=== PATIENT | female | born 1985 | race Caucasian/White ===

== ENCOUNTER 2018-01-09 05:51 | Inpatient (IN) ==
--- OUTSIDE RECORDS SUMMARY | 2018-01-09 06:08 | External Medical Summary ---
:1985 Author Organization eClinicalWorks Care Team Providers Name Role Phone Chiquita Shoemaker Provider Role Unavailable Allergies No Known Allergies Problems Problem Type Condition Code Onset Dates Condition Status Problem Graves disease E05.00 Active Problem Multiple thyroid nodules E04.2 Active Medications Medication Code System Code Instructions Start Date End Date Status Dosage Synthroid [facility] [address] MCG Orally 1 tablet on -19 Once a day an empty stomach in the morning Results No Known Results Summary Purpose eClinicalWorks Submission
--- OUTSIDE RECORDS SUMMARY | 2018-01-09 06:08 | External Medical Summary ---
:1985 Author Organization e[employer]Works Care Team Providers Name Role Phone Manohar Alicea Provider Role Unavailable Allergies, Adverse Reactions, Alerts Substance Reaction Event Type N.K.D.A. 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 Medications Medication Code Code Instructions Start End Status Dosage System Date Date Ketoconazole [facility] [address]-56 2 % Externally December 26, as one daily for 2 2015 directed weeks Lisinopril-Hydr [facility] [address]-91 10-12.5 MG 1 tablet ochlorothiazide Orally Once a day Methimazole [facility] 60401810727 5MG Orally Once 1/2 tablet a day daily Procedures Procedure Coding System Code Date Office Visit, Est Pt., Level 4 CPT-4 09059 December 26, 2014 Vital Signs Date/Time: December 26, 2014 Blood Pressure Systolic 120 mm Hg Weight 142 lbs Height 67.5 in BMI 21.91 Index Respiratory Rate 16 /min Cardiac Monitoring Heart Rate 80 /min Blood Pressure Diastolic 72 mm Hg Results No Known Results Summary Purpose eClinicalWorks Submission
--- OUTSIDE RECORDS SUMMARY | 2018-01-09 06:08 | External Medical Summary ---
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
--- OUTSIDE RECORDS SUMMARY | 2018-01-09 06:08 | External Medical Summary ---
:1985 Author Organization eClinicalWorks Care Team Providers Name Role Phone Manohar Alicea Provider Role Unavailable Allergies, Adverse Reactions, Alerts Substance Reaction Event Type N.K.D.A. Info Not Available Non Drug Allergy Problems Problem Type Condition ICD-9 Code Onset Dates Condition Status Problem Thyroid nodule 241.0 Active Problem Graves disease 242.00 Active Problem Graves disease E05.00 Active Assessment Graves disease 242.00 Active Assessment Thyroid nodule 241.0 Active Medications Medication Code System Code Instructions Start Date End Date Status Dosage Methimazole [facility] [address]475 5MG Orally Once a 1/2 tablet 5-01 day Procedures Procedure Coding System Code Date FREE ASSAY (FT-3) CPT-4 15346 Apr 24, 2015 ASSAY THYROID STIM HORMONE CPT-4 82024 Apr 24, 2015 Venipuncture CPT-4 42857 Apr 24, 2015 Office Visit, Est Pt., Level 3 CPT-4 11352 Apr 24, 2015 ASSAY OF FREE THYROXINE CPT-4 76721 Apr 24, 2015 Vital Signs Date/Time: Apr 24, 2015 Blood Pressure Systolic 126 mm Hg Weight 144.0 lbs Height 67.5 in BMI 22.22 Index Respiratory Rate 16 /min Cardiac Monitoring Heart Rate 64 /min Blood Pressure Diastolic 74 mm Hg Results Name Result Date Reference Range Unit Abnormality Flag Free T3 98770 Summary Purpose eClinicalWorks Submission
[2018-01-09] MEDS ORDERED: MORPHINE SULFATE 2mg INJ IVP PRN (06:14)
[2018-01-09] MEDS ORDERED: ACETAMINOPHEN 325 MG TABLET PO PRN (06:14)
[2018-01-09 06:31] VITALS: O2SAT 96
[2018-01-09] MEDS: D5LR 1,000 ML IV SCH ×2 (06:52→14:27)
[2018-01-09] MEDS ORDERED: METOCLOPRAMIDE 10mg/2ml INJECTION IVP PRN (15:07)
[2018-01-09] MEDS: LR 1,000 ML IV SCH (19:38)
--- NOTE | 2018-01-09 20:21 | Anesthesia Preoperative Report ---
Anesthesia Epidural/Spinal Rec - Date and Time Date: 01/09/18 Preoperative Diagnosis: Induction Procedure: Labor Epidural Plan: Epidural - Vital Signs Vital Signs: Temperature 98.4 F 01/09/18 07:04 Pulse Rate 99 01/09/18 07:04 Respiratory Rate 14 01/09/18 07:04 Blood Pressure 143/90 H 01/09/18 07:04 Pulse Oximetry 96 01/09/18 07:04 /Para: P:2 - Medictaions & Allergies Inpatient Medications: Current Medications Acetaminophen (Tylenol) 650 mg PO Q4H PRN PRN Reason: Fever Dextrose/Lactated Ringer's (Dextrose 5%-Lactated Ringers) 1,000 mls @ 125 mls/ hr IV .Q8H [facility] Last Admin: 01/09/18 14:27 Dose: 125 mls/hr Metoclopramide HCl (Reglan) 10 mg IVP Q6H PRN Misoprostol (Cytotec) 400 mcg VG Q3HR [facility] Last Admin: 01/09/18 16:24 Dose: 400 mcg Morphine Sulfate (Morphine Sulf 2 Mg Inj) 2 - 4 mg IVP Q2H PRN PRN Reason: Severe Labor Pain Allergies/Adverse Reactions: Allergies Allergy/AdvReac Type Severity Reaction Status Date / Time No Known Drug Allergies Allergy Unknown Verified 01/09/18 08:13 - Home Medications Home Medications: Home Medications Medication Instructions Recorded Confirmed Type Ibuprofen 800 mg PO Q8H PRN #60 tab 03/31/14 01/09/18 Rx Levothyroxine Sodium [Synthroid] 1 tab PO ACB #0 tab 11/21/16 01/09/18 History methyldopa 1 tab PO BID 09/27/17 01/09/18 History - Medical History Cardiovascular: Reports: Hypertension Renal/Endocrine: Reports: Thyroid Disease, Other (Graves disease) Other History: Reports: Cancer (Thyroid) - Surgical History Reproductive Surgery/Treatment: Reports: Section Anesthesia Reactions: None Hx Family Anesthesia Reaction: No History of Motion Sickness: No - Social History Smoking Status: Never smoker Second Hand Exposure: No Substance Use Type: does not use Alcohol Intake Frequency: does not drink Hx Chewing Tobacco Use: No - Pertinent Findings Lab Data: CBC and BMP 01/09/18 06:45 01/09/18 06:45 BMP 01/09/18 06:45 Sodium 143 Potassium 3.7 Chloride 108 H Carbon Dioxide 20 L BUN 8.0 Creatinine 0.4 L Glucose 99 Calcium 8.7 Liver Function 01/09/18 Range/Units 06:45 Total Bilirubin 0.40 (0.20-1.30) MG/DL AST 19 (14-36) U/L ALT 16 (1-35) U/L Alkaline Phosphatase 75 (38-126) U/L Albumin 4.2 (3.5-5.0) g/dL EKG Rhythm: Normal Sinus Rhythm - Physical Exam Respiratory Exam: lungs clear Cardiovascular Exam: regular rate and rhythm - Airway Assessment Mallampati Score: II TMD: 3 Fingerbreadths Neck Extension: good Overall Assessment: no airway concerns - ASA ASA Score: 2 - Discussion Discussion: Discussed risks/options/alternatives of anesthesia and questions answered. Patient consents. Nursing pain assessment noted. Anesthesia Discussion: spouse Attestation Statement: Prior to the delivery of any anesthetic medication, I examined the patient, developed the plan, obtained the patient's consent and discussed the risk and benefits of the procedure with the patient/guardian.
[2018-01-09] MEDS ORDERED: LR 1,000 ML IV PRN (22:27)
[2018-01-09] MEDS ORDERED: MAG-AL + SIM ORAL LIQUID 30ml PO PRN ×3 (22:27→23:33)
[2018-01-09] MEDS ORDERED: CARBOPROST 250 MCG/ML INJECTION IM PRN (22:27)
[2018-01-09] MEDS ORDERED: LIDOCAINE 1% (10mg/ml) 2mL INJ PF SDV ID PRN (22:27)
[2018-01-09] MEDS ORDERED: CALCIUM CARBONATE Chewable 500mg TABLET PO PRN ×3 (22:27→23:33)
[2018-01-09] MEDS ORDERED: METHYLERGONOVINE 0.2 MG/ML INJECTION IM PRN (22:27)
[2018-01-09] MEDS ORDERED: ACETAMINOPHEN 500 MG TABLET PO PRN ×3 (22:27→23:33)
[2018-01-09] MEDS ORDERED: HYDROCORTISONE 2.5% CREAM 30gm RECTALLY PRN ×2 (22:37→23:33)
[2018-01-09] MEDS ORDERED: DiphenhydrAMINE 25 MG CAPSULE PO PRN ×2 (22:37→23:33)
[2018-01-09] MEDS ORDERED: IBUPROFEN 800 MG TABLET PO PRN ×2 (22:37→23:33)
[2018-01-09] MEDS ORDERED: SALINE FLUSH 10ml SYRINGE IV PRN ×2 (22:37→23:33)
[2018-01-09] MEDS ORDERED: ROPIVACAINE 1% 10MG/ML INJ 200 MG, SUFentanil 50 MCG in NS 100 ML EPI PRN (22:43)
[2018-01-09] MEDS ORDERED: NALOXONE 0.4 MG/ML INJECTION IVP PRN (22:43)
[2018-01-09] MEDS ORDERED: DiphenhydrAMINE 50 MG/ML INJECTION IVP PRN (22:43)
[2018-01-09] MEDS ORDERED: ONDANSETRON 4 MG/2 ML INJECTION IVP PRN (22:43)
[2018-01-09] MEDS ORDERED: OXYTOCIN DRIP 30 UNIT/500 ML ML IV SCH ×2 (22:45→23:33)
[2018-01-09] MEDS ORDERED: HYDROCODONE/APAP 5mg/325mg TABLET PO PRN (23:33)
[2018-01-10] MEDS: LR 1,000 ML IV SCH ×2 (02:19→02:20)
[2018-01-10] MEDS: D5LR 1,000 ML IV SCH (02:21)
[2018-01-10] MEDS ORDERED: DOCUSATE CALCIUM 240 MG CAPSULE PO SCH ×2 (09:00)
[2018-01-10 09:30] VITALS: BP 139/67; PULSE 91; RESP 16; TEMP 97.4
[2018-01-10 09:31] VITALS: BMI 24.7
--- NOTE | 2018-01-11 03:07 | Anesthesia Postoperative Note ---
- Date and Time Date: 01/10/18 Time: 14:06 - Status Patient Participated in Evaluation: Patient Participated by Phone Vital Signs: Temperature 97.4 F 01/10/18 09:25 Pulse Rate 91 01/10/18 09:25 Respiratory Rate 16 01/10/18 09:25 Blood Pressure 139/67 01/10/18 09:25 Pulse Oximetry 96 01/09/18 07:04 Respiratory Function: Airway Patent Mental Status: Alert and Oriented Pain Intensity: 0 Hydration: Taking PO Fluids Complications During Recover: None Apparent - Follow-Up Instructions Instructions: Per Surgeon
--- NOTE | 2018-01-11 07:15 | Labor and Delivery Note ---
DATE OF DELIVERY 01/09/2018 DELIVERY NOTE The patient is a 32-year-old, G3, P2, who presented to the hospital at 19 weeks 4 days by LMP after being diagnosed with an intrauterine demise on 2017 with a fetus measuring 14 weeks 5 days on sono and no heart tones. Ena was asymptomatic on arrival. She did undergo Cytotec induction and tolerated it very well. An epidural was placed prior to her delivery for adequate pain control. When patient did deliver, the amniotic sac delivered intact with the fetus inside, followed immediately by the placenta. The amniotic sac and the baby and the placenta were placed in the placental tub and attention was returned to Ena who continued to have some passage of clots and bleeding. Uterine massage showed the uterus to be firm. One dose of Methergine was given IM, after which she no longer had any further passage of clots. The patient did continue to have a slow but consistent trickle of bleeding after that time as the nurses were cleaning her up, so Pitocin was also started. After hemostasis was achieved on Ena, we did turn our attention to the baby. The amniotic sac was manually ruptured and baby was in the position and was found to have a tight nuchal cord x 2 and another cord looped around his head. He otherwise appeared completely normal in appearance and weighed 57 g. At this time Ena is doing very well. [facility]
== END 2018-01-10 09:27 | disposition home or self-care (01) | DRG 779 ==
LOC: MC 06:03
PROVIDERS: ADMIT Family Medicine; ATTEND Family Medicine